=== PATIENT | male | born 1980 | race Caucasian/White ===

== ENCOUNTER 2016-08-26 12:48 | Emergency (ER) | payer SELFPAY ==
[~2016-08-26] VITALS: Ht 185.4 cm; Wt 165.0 kg
[2016-08-26 12:55] VITALS: TEMP 36.6; Ht 185.4 cm; Wt 165.0 kg
[2016-08-26] MEDS ORDERED: MoRPHine SULFATE 10 MG/ML CARP/VIAL IM STA (13:19)
[2016-08-26] MEDS ORDERED: KETOROLAC TROMETHAMINE 60 MG/2 ML VIAL IM STA (13:19)
[2016-08-26] MEDS ORDERED: CARI350T27 PO (14:20)
[2016-08-26] MEDS ORDERED: PRED50TA PO (14:20)
[2016-08-26] MEDS ORDERED: OXYC1TAB3 PO (14:20)
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
[2016-08-26 14:36] VITALS: BP 155/78; PULSE 88; O2SAT 98
== END 2016-08-26 14:39 | disposition home or self-care (01) ==
LOC: EDBD 12:48 → C.EDB 12:48 → C.EDD 14:39
DX: S39.012A Strain of muscle, fascia and tendon of lower back, initial encounter (principal); X58.XXXA Exposure to other specified factors, initial encounter; Z79.52 Long term (current) use of systemic steroids